=== PATIENT | female | born 1930 | race Caucasian/White ===

== ENCOUNTER 2016-02-26 07:55 | Emergency (ER) | payer OTHER ==
--- NOTE | 2016-02-26 10:42 | DIAGNOSTIC IMAGING REPORT ---
PROCEDURE: XR CHEST 2 VIEW INDICATION: COUGH TECHNIQUE: PA and lateral views. COMPARISON: None. FINDINGS: Lungs are clear. Heart is normal. There is a large hiatal hernia. Thorax is normal. IMPRESSION: 1. No acute disease
--- NOTE | 2016-02-26 12:24 | ED ORDER SUMMARY ---
..... Patient: MOHAN OH OrderSheet [facility] VisitID: [id number] [place] [address] 85y, F Registration Date/Time: 02/26/2016 ORDER SHEET Weight: 53.5 kg Allergies: Ibuprofen, Codeine, Sulfa Antibiotics, Doxycycline, Cefuroxime, Clavulanic Acid, Pravastatin GENERAL ORDERS: CBC w Diff Urgent (08:02/26/2016 EBonjosh per protocol) (Ack 8:21 LNations ER Tech1) (11:46 NHouse ER Tech1) CMP Urgent (08:02/26/2016 EBonjosh per protocol) (Ack 8:21 LNations ER Tech1) (11:46 NHouse ER Tech1) UA-Culture if indicated Urgent (:02/26/2016 EBsudhir per protocol) (Ack 8:21 LNations ER Tech1) (11:46 NHouse ER Tech1) EKG - ER Stat (09:02/26/2016 Roberto Salinas) (Ack 9:22 LNations ER Tech1) (9:37 Adi) TSH Urgent (09:02/26/2016 Roberto Salinas) (Ack 9:22 LNations ER Tech1) (11:46 NHouse ER Tech1) Troponin-I Urgent (09:02/26/2016 Roberto Salinas) (Ack 9:22 LNations ER Tech1) (11:46 NHouse ER Tech1) Chest 2V Urgent (09:02/26/2016 Roberto Salinas) (Ack 9:22 LNations ER Tech1) (9:52 LNations ER Tech1) Magnesium Urgent (09:02/26/2016 Roberto Salinas) (Ack 9:22 LNations ER Tech1) (11:46 NHouse ER Tech1) MEDICATION ORDERS: Aspirin PO 325 mg (Do not crush or chew, NOW) (09:02/26/2016 Roberto Salinas) (9:23 Josh) DuoNeb Neb Tx 1 unit dose (NOW) (09:16 02/26/2016 Roberto Salinas) (9:37 Adi) Azithromycin PO 500 mg (NOW) (12:21 02/26/2016 Roberto Salinas) (12:39 [facility]) IV FLUIDS: IV NS : initial bolus 500 mL (1000 mL/hr), then none - for X1 (NOW) (09:09 02/26/2016 Roberto Salinas) (9:24 [facility]) Metoprolol IV 5 mg (hold for BP < 90 systolic or 40 diastolic) (09:12 02/26/2016 Roberto Salinas) (9:24 [facility]) Metoprolol IV 5 mg (HIGH ALERT MEDICATION, NOW) (11:36 02/26/2016 Roberto Salinas) (12:02 [facility]) IV NS : initial bolus 500 mL (1000 mL/hr), then none - for X1 (NOW) (11:55 02/26/2016 Roberto Salinas) (12:03 [facility]) ORDER SHEET NOTES: [Electronically signed by Lynda Scott (13:11 02/26/2016)] [Electronically signed by Geovany Gracia Dr. (01:18 02/28/2016)] [Electronically locked/signed by Lynda Scott (13:11 02/26/2016)]
--- NOTE | 2016-02-26 12:24 | ED NURSING NOTES ---
Clinical Report - Nurses [facility] [address] [place] [address] 02/26/2016 8:01 Patient: MOHAN OH TRIAGE Triage time 0805. Chief Complaint: ALTERED MENTAL STATUS and (falls no injury). Alert. No acute distress. --08:14 Lynda Scott 08:12 02/26/16. BP: 109/75. HR: 150. RR: 16. O2 saturation: 95%. Temp: 97.8 F. Pain level now 0/10. --08:14 Lynda Scott. Weight: 53.5 kg. Height/Length: 61 inches. BMI: 22.3. --08:12 Lynda Scott. Medications Serevent Diskus Inhalation. --08:28 Lynda Scott PredniSONE Oral. --08:28 Lynda Scott Metoprolol Succinate ER Oral. --08:28 Lynda Scott Lasix Oral. --08:28 Lynda Scott Tessalon Perles Oral. --08:28 Lynda Scott Potassimin Oral. --08:29 Lynda Scott Ventolin HFA Inhalation. --08:29 Lynda Scott Qvar Inhalation. --08:29 Lynda Scott Simvastatin Oral. --08:29 Lynda Scott. Allergies Ibuprofen. --08:29 Lynda Scott Codeine. --08:29 Lynda Scott Sulfa Antibiotics. --08:29 Lynda Scott Doxycycline. --08:30 Lynda Scott Cefuroxime. --08:30 Lynda Scott Clavulanic Acid. --08:30 Lynda Scott Pravastatin. --08:30 Lynda Scott. History Arrived by EMS. Historian: EMS. This started 1 months ago. PAST MEDICAL HX: Stroke. --08:14 Lynda Scott. PROBLEMS: Atrial Fibrillation. --08:13 Lynda Scott. ADDITIONAL SURGERIES: Mastectomy. --08:30 Lynda Scott. PHYSICAL ASSESSMENT To room via stretcher. Patient gowned. GENERAL / NEURO / PSYCH: Alert. Appears in no acute distress. The patient is disoriented to time and situation. Speech within normal limits. Patient appears well-nourished and neat and clean. RESPIRATORY: Respirations not labored. Breath sounds within normal limits. CVS: Cardiac rhythm: atrial fibrillation. GI / : Abdomen soft and nontender. Bowel sounds within normal limits. SKIN: Skin is warm and dry. Normal skin turgor. --08:15 Lynda Scott. NURSING PROGRESS NOTES 08:31 02/26/2016 Site #1 started via IV in the right forearm with an 22g angiocath, with aseptic technique and good blood return; one attempt. Blood drawn: rainbow set. Labeled in the presence of the patient and sent to the lab. Saline lock flushed with 10 mL saline. --08:31 Lynda Scott 09:23 02/26/2016 Aspirin PO 325 mg given. Allergies verified and confirmed 5 rights. --09:23 Lynda Scott 09:23 02/26/2016 Metoprolol (Metoprolol Tartrate) IVP 5 mg given. via site #1. Allergies verified and confirmed 5 rights. IV patency established. IV site checked: no pain, redness, or swelling. IV flushed thoroughly pre- and post-medication administration. IVP given by RN. --09:24 Lynda Scott 09:24 02/26/2016 Started bag #1 500 mL IV Fluids IV NS (Saline); bolus of 500 mL wide open via site #1 --09:24 Lynda Scott EKG time: (936). EKG was ordered, performed and shown to the ED physician. --09:37 Soila Reagan ER TechNey 09:37 02/26/2016 Duoneb (Ipratropium-Albuterol) Neb TX Nebulizer 1 unit dose given. Given by the respiratory therapist. Allergies verified and confirmed 5 rights. --09:37 Sarah Sweeney 09:38 02/26/16. BP: 109/81. HR: 109. RR: 16. O2 saturation: 98%. Pain level now 0/10. --09:39 Lynda Scott Cardiac rhythm: atrial fibrillation; (ventricular rate). Reassessment after medication administered. She has had no adverse reaction. Overall patient status is improved- she states feels better. --09:39 Lynda Scott 12:02 02/26/2016 Metoprolol (Metoprolol Tartrate) IVP 5 mg given. via site #1. Allergies verified and confirmed 5 rights. IV patency established. IV site checked: no pain, redness, or swelling. IV flushed thoroughly pre- and post-medication administration. IVP given by RN. --12:02 Lynda Scott 12:03 02/26/2016 Started bag #1 500 mL IV Fluids IV NS (Saline); bolus of 500 mL wide open via site #1. Confirmed 5 rights. IV patency established. IV site checked: no pain, redness, or swelling. IV flushed thoroughly pre- and post-medication administration. --12:03 Lynda Scott 12:03 02/26/16. BP: 101/64. HR: 128. RR: 18. O2 saturation: 96%. Pain level now 0/10. --12:05 Lynda Scott ( Pt has completely changed affect, pt now anxious, tearful, wants to leave, family at bedside attempting to calm pt down). Family informed about reason for wait and about plan of care. Patient waiting for disposition. --12:05 Lynda Scott 12:39 02/26/2016 Azithromycin PO 500 mg given. Allergies verified and confirmed 5 rights. --12:39 Lynda Scott. DISPOSITION / DISCHARGE Departure time: 1310. Condition at departure: improved and stable. Discharge instructions provided and reviewed with the family. Reviewed medication(s). Family verbalized understanding. Written instructions provided in [place]. The patient was discharged by the physician. She was discharged home and accompanied by family. She left the Emergency Department in a wheelchair and via private vehicle. Family member driving. --13:11 Lynda Scott 13:10 02/26/16. BP: 108/69. HR: 90. RR: 18. O2 saturation: 96%. Pain level now 0/10. --13:11 Lynda Scott. Locked/Released at 02/26/2016 13:11 by Lynda Scott,
--- NOTE | 2016-02-26 12:24 | ED CLINICAL REPORT ---
Clinical Report - Physicians/Mid Levels [facility] [address] [place] [address] 02/26/2016 8:01 Patient: MOHAN OH Time Seen: 0903. Arrived- By private vehicle. Historian- patient and family. HISTORY OF PRESENT ILLNESS Chief Complaint: DECREASED MENTAL STATUS. This started past several weeks and is still present and worsening. It has been waxing/waning but is not gone now. Patient was last known well (several weeks ago). The patient has been confused. (no pain anywhere. not eating/drinking well. strong smelling urine with bubbles.). No alcohol recently. The patient has had weakness. She has had a recent fall. Usually is alert and oriented X3 and usually has normal mobility. Similar symptoms previously: None. Recent medical care: Not recently seen/assessed. REVIEW OF SYSTEMS No fever or chest pain. She has had a cough (resolving). runny nose resolving. All systems otherwise negative, except as recorded above. SOCIAL HISTORY Former smoker. No alcohol use or drug use. No recent travel. Is a local resident. FAMILY HISTORY Negative. ADDITIONAL NOTES The nursing notes have been reviewed. PHYSICAL EXAM Vital Signs: 02/26/2016 08:12 BP: 109/75. HR: 150. RR: 16. O2 saturation: 95%. Temp: 97.8 F. Blood pressure normal. Oxygen saturation normal. Appearance: Alert. No acute distress. Head: Head atraumatic. Eyes: Pupils equal, round and reactive to light. ENT: Normal ENT inspection. Airway intact. Moist mucous membranes. Pharynx normal. Neck: Normal inspection. Neck supple. No meningeal signs. CVS: Tachycardia. Heart sounds normal. Pulses normal. Rhythm normal. Respiratory: No respiratory distress. Mild bilateral rhonchi present in the bases. No rales or wheezes. Abdomen: Soft and nontender. No organomegaly. Back: Normal inspection. Skin: Skin warm and dry. Normal skin color. No rash. Normal skin turgor. Extremities: Extremities exhibit normal ROM. No lower extremity edema. Neuro: Alert. Oriented X 3. No alteration in mental status. No aphasia. Mood/affect normal. Speech normal. No dysphasia or dysarthria. Cranial nerves normal (as tested). No cerebellar findings. No motor deficit. No sensory deficit. LABS, X-RAYS, AND EKG Chest X-ray: (PROCEDURE: XR CHEST 2 VIEW INDICATION: COUGH TECHNIQUE: PA and lateral views. COMPARISON: None. FINDINGS: Lungs are clear. Heart is normal. There is a large hiatal hernia. Thorax is normal. IMPRESSION: 1. No acute disease). The X-rays were independently viewed by me, interpreted by the radiologist and discussed with the radiologist. Laboratory Tests: UA-Culture if indicated: (GILDA: 02/26/2016 08:45) ( MsgRcvd 02/26/2016 09:19) Final results Test Result Flag Units (Reference) URINE COLOR YELLOW URINE APPEARANCE CLEAR URINE GLUCOSE NEGATIVE (NEGATIVE) URINE BILIRUBIN NEGATIVE (NEGATIVE) URINE KETONE TRACE (NEGATIVE) URINE SPECIFIC GRAVITY 1.015 (1.010-1.030) URINE PH 6.0 (5.0-8.0) URINE PROTEIN TRACE (NEGATIVE) URINE UROBILINOGEN 1.0 EU/dL (0.2-1.0) URINE NITRITE NEGATIVE (NEGATIVE) URINE BLOOD TRACE-LYSED (NEGATIVE) URINE LEUK ESTERASE NEGATIVE (NEGATIVE) URINE RBC RARE rbc/hpf (0-1) URINE WBC 0-1 wbc/hpf (0-1) URINE EPITHELIAL CELLS 0-1 EPI/hpf (0-5) URINE BACTERIA NONE SEEN (NONE SEEN) URINE COMMENT CULT NOT INDICATED URINE CULTURES ARE SET-UP BASED ON THE FOLLOWING CRITERIA:POSITIVE NITRITEPOSITIVE LEUKOCYTE ESTERASEGREATER THAN 10 WHITE BLOOD CELLSMODERATE (2+) OR GREATER BACTERIA CBC w Diff: (GILDA: 02/26/2016 08:20) ( MsgRcvd 02/26/2016 08:56) Final results Test Result Flag Units (Reference) WHITE BLOOD COUNT 9.6 K/uL (4.5-11.5) RED BLOOD COUNT 4.30 M/uL (4.00-5.20) HEMOGLOBIN 12.3 gm/dL (12.0-16.0) HEMATOCRIT 37.6 % (36.0-46.0) MEAN CELL VOLUME 87 fL (80-100) MEAN CORPUSCULAR HGB 29 pg (26-34) MEAN CORPUSCULAR HGB CONC 33 g/dL (31-37) RED CELL DISTRIBUTION WIDTH 16.4 H % (11.6-14.8) PLATELET COUNT 259 K/uL (150-400) NEUTROPHIL % 72.4 % (50-75) LYMPH % 19.4 L % (25-40) MONO % 7.9 % (3-14) EOSINOPHIL % 0.1 % (0-4) BASOPHIL % 0.2 % (0-2) Magnesium: (GILDA: 02/26/2016 08:20) ( MsgRcvd 02/26/2016 10:41) Final results Test Result Flag Units (Reference) MAGNESIUM 2.1 mg/dL (1.8-2.4) TROPONIN I <0.05 ng/mL (0.00-1.5) TROPONIN REFERENCE RANGE:<0.1 NEGATIVE0.1-1.5 INDETERMINANT>1.5 POSITIVE THYROID STIMULATING HORMONE 2.123 uIU/mL (0.30-3.74) CMP: (GILDA: 02/26/2016 08:20) ( MsgRcvd 02/26/2016 09:03) Final results Test Result Flag Units (Reference) GLUCOSE 118 H mg/dL (70-110) BUN 23 H mg/dL (7-18) CREATININE 1.1 mg/dL (0.6-1.3) Estimated GFR 50.05 mL/min Estimated GFR- >60 mL/min Note: Persistent reduction over 3 months in eGFR<60 mL/min/1.73 m2 defines CKD. Patients with eGFR values>=60 mL/min/1.73 m2 may also have CKD if evidence ofpersistent proteinuria. Additional information may be foundat www.kidney.org. SODIUM 136 mmol/L (136-145) POTASSIUM 3.5 mmol/L (3.5-5.1) CHLORIDE 102 mmol/L (98-107) CARBON DIOXIDE 26 mmol/L (21-32) CALCIUM 8.6 mg/dL (8.5-10.1) TOTAL PROTEIN 6.4 g/dL (6.4-8.2) ALBUMIN 3.0 L g/dL (3.3-5.0) BILIRUBIN, TOTAL 0.6 mg/dL (0.0-1.0) ALKALINE PHOSPHATASE 74 U/L (46-116) AST (SGOT) 16 U/L (15-37) ALT (SGPT) 25 U/L (12-78) . PROGRESS AND PROCEDURES Course of Care: the patient is a pleasant 85-year-old female with coccyx past medical history presented for evaluation of altered mental status 1 month. The patient is resting in bed in no acute distress however patient does have tachycardia and examination. No focal neurological deficits noted on examination. The patient does stroke at this time or need evaluation for this entity. At this time will be evaluating for any systemic causes for the global typeof altered mental status the family has been describing. Patient is otherwise afebrile here in the emergency department. Family and patient are agreeable to the workup. At this time differential diagnosis includes sepsis,pneumonia, urinary tract infection,electrolyte abnormalities. Patient's workup was remarkable for possible right lower lobe consolidation on my preliminary read of the chest x-ray. We are currently awaiting final read from radiology. Findings on chest x-ray are consistent with exam findings. Laboratory studies did not show any acute abnormalities. No urinary tract infection. Electrolyte otherwise unremarkable. Lactic acid and troponin are also normal. The patient continues to be resting in bed in no acute distress. Tachycardia improved with treatment here in the emergency department. I discussion with family and patient in regards to workup diagnosis, home care, follow-up, and return precautions. The patient and family expressed understanding of these instructions and was agreeable to them. Of note, final read on chest x-ray by radiology is noted to have no acute findings. I disagree with this reading based on my evaluation of the patient and note right lower lobe consolidation. Patient a good outpatient candidate. Patient has good family support. Family and patient are agreeable to follow up with their primary care doctor. Disposition: Discharged. Condition: good. CLINICAL IMPRESSION 02/26/2016 12:03 BP: 101/64. HR: 128. RR: 18. O2 saturation: 96%. Hypertensive. Tachycardic. Oxygen saturation normal. Chronic, paroxysmal atrial fibrillation with uncontrolled rate. The patient is prescribed warfarin or another FDA approved anticoagulant. (acute exacerbation). Bacterial pneumonia. (acute right lower lobe). INSTRUCTIONS Warnings: GENERAL WARNINGS: Return or contact your physician immediately if your condition worsens or changes unexpectedly, if not improving as expected, or if other problems arise. Specifically return if pain, vomiting, bleeding, breathing difficulty or fever. Your Current Medications: CONTINUE TAKING THE FOLLOWING MEDICATIONS: Lasix Oral. Metoprolol Succinate ER Oral. Potassimin Oral. PredniSONE Oral. Qvar Inhalation. Serevent Diskus Inhalation. Simvastatin Oral. Tessalon Perles Oral. Ventolin HFA Inhalation. Prescription Medications: Zithromax Z-Jhoan: Take according to package instructions. No refills. Substitution is permissible. Follow-up: Return to the emergency department as needed. Follow up with your doctor in three days. Reason for referral: recheck today's concerns. Summary of care provided to patient via paper. Screening today revealed the patient's blood pressure to be in the normal range. The patient should follow up with a primary care provider for blood pressure management. Understanding of the discharge instructions verbalized by patient. (Electronically signed by Geovany Gracia Dr. 02/28/2016 1:18)
--- NOTE | 2016-02-26 12:24 | ED ORDER SUMMARY ---
..... Patient: MOHAN OH OrderSheet [facility] VisitID: [id number] [place] [address] 85y, F Registration Date/Time: 02/26/2016 ORDER SHEET Weight: 53.5 kg Allergies: Ibuprofen, Codeine, Sulfa Antibiotics, Doxycycline, Cefuroxime, Clavulanic Acid, Pravastatin GENERAL ORDERS: CBC w Diff Urgent (08:02/26/2016 EBonjosh per protocol) (Ack 8:21 LNations ER Tech1) (11:46 NHouse ER Tech1) CMP Urgent (08:02/26/2016 EBonjosh per protocol) (Ack 8:21 LNations ER Tech1) (11:46 NHouse ER Tech1) UA-Culture if indicated Urgent (:02/26/2016 EBsudhir per protocol) (Ack 8:21 LNations ER Tech1) (11:46 NHouse ER Tech1) EKG - ER Stat (09:02/26/2016 Roberto Salinas) (Ack 9:22 LNations ER Tech1) (9:37 Adi) TSH Urgent (09:02/26/2016 Roberto Salinas) (Ack 9:22 LNations ER Tech1) (11:46 NHouse ER Tech1) Troponin-I Urgent (09:02/26/2016 Roberto Salinas) (Ack 9:22 LNations ER Tech1) (11:46 NHouse ER Tech1) Chest 2V Urgent (09:02/26/2016 Roberto Salinas) (Ack 9:22 LNations ER Tech1) (9:52 LNations ER Tech1) Magnesium Urgent (09:02/26/2016 Roberto Salinas) (Ack 9:22 LNations ER Tech1) (11:46 NHouse ER Tech1) MEDICATION ORDERS: Aspirin PO 325 mg (Do not crush or chew, NOW) (09:02/26/2016 Roberto Salinas) (9:23 Josh) DuoNeb Neb Tx 1 unit dose (NOW) (09:16 02/26/2016 Roberto Salinas) (9:37 Adi) Azithromycin PO 500 mg (NOW) (12:21 02/26/2016 Roberto Salinas) (12:39 [facility]) IV FLUIDS: IV NS : initial bolus 500 mL (1000 mL/hr), then none - for X1 (NOW) (09:09 02/26/2016 Roberto Salinas) (9:24 [facility]) Metoprolol IV 5 mg (hold for BP < 90 systolic or 40 diastolic) (09:12 02/26/2016 Roberto Salinas) (9:24 [facility]) Metoprolol IV 5 mg (HIGH ALERT MEDICATION, NOW) (11:36 02/26/2016 Roberto Salinas) (12:02 [facility]) IV NS : initial bolus 500 mL (1000 mL/hr), then none - for X1 (NOW) (11:55 02/26/2016 Roberto Salinas) (12:03 [facility]) ORDER SHEET NOTES: [Electronically signed by Lynda Scott (13:11 02/26/2016)] [Electronically signed by Geovany Gracia Dr. (01:18 02/28/2016)] [Electronically locked/signed by Lynda Scott (13:11 02/26/2016)]
--- NOTE | 2016-02-28 01:18 | ED DISCHARGE INSTRUCTIONS ---
Patient: MOHAN OH General Instructions [facility] VisitID: [id number] [place] [address] 85y, F Registration Date/Time: 02/26/2016 02/26/2016 12:03 BP: 101/64. HR: 128. RR: 18. O2 saturation: 96%. Hypertensive. Tachycardic. Oxygen saturation normal. Chronic, paroxysmal atrial fibrillation with uncontrolled rate. The patient is prescribed warfarin or another FDA approved anticoagulant. (acute exacerbation). Bacterial pneumonia. (acute right lower lobe). INSTRUCTIONS Warnings: GENERAL WARNINGS: Return or contact your physician immediately if your condition worsens or changes unexpectedly, if not improving as expected, or if other problems arise. Specifically return if pain, vomiting, bleeding, breathing difficulty or fever. Your Current Medications: CONTINUE TAKING THE FOLLOWING MEDICATIONS: Lasix Oral. Metoprolol Succinate ER Oral. Potassimin Oral. PredniSONE Oral. Qvar Inhalation. Serevent Diskus Inhalation. Simvastatin Oral. Tessalon Perles Oral. Ventolin HFA Inhalation. Prescription Medications: Zithromax Z-Jhoan: Take according to package instructions. No refills. Substitution is permissible. Follow-up: Return to the emergency department as needed. Follow up with your doctor in three days. Reason for referral: recheck today's concerns. Summary of care provided to patient via paper. Screening today revealed the patient's blood pressure to be in the normal range. The patient should follow up with a primary care provider for blood pressure management. Understanding of the discharge instructions verbalized by patient. ADDITIONAL INFORMATION Pneumonia (Adult) Pneumonia is an infection deep within the lung, in the small air sacs (alveoli). It may be due to a virus or bacteria and is usually treated with an antibiotic. Severe cases require treatment in the hospital. Milder cases can be treated at home. Symptoms usually start to improve during the first2 days of treatment. Home Care: Rest at home for the first 23 days or until you feel stronger. When resuming activity, dont let yourself become overly tired. Avoid exposure to cigarette smoke (yours or others). You may use acetaminophen (Tylenol) or ibuprofen (Motrin, Advil) to control fever or pain, unless another medicine was prescribed. [NOTE: If you have chronic liver or kidney disease or ever had a stomach ulcer or GI bleeding, talk with your doctor before using these medicines.] (Aspirin should never be used in anyone under 18 years of age who is ill with a fever. It may cause severe liver damage.) Your appetite may be poor so a light diet is fine. Keep well hydrated by drinking 68 glasses of fluids per day (water, sport drinks such as Gatorade, sodas without caffeine, juices, tea, soup, etc.). This will help loosen secretions in the lung, making it easier for you to cough up the phlegm (sputum). If you also have heart or kidney disease, check with your doctor before you drink extra amounts of fluids. Finish all antibiotic medicine prescribed, even if you are feeling better after a few days. Follow Up with your doctor in the next 23 days (or as advised) to be sure you are responding properly to the medicine. [NOTE: If you are age 65 or older, or if you have chronic lung disease (asthma, emphysema or COPD), we recommendthe pneumococcal vaccination and a yearlyinfluenzavaccination(flu-shot) every . Ask your doctor about this.] Get Prompt Medical Attention if any of the following occur: Not getting better within the first 48 hours of treatment Increasing shortness of breath or rapid breathing (over 25 breaths/minute) Coughing up blood or increasing chest pain with breathing Fever of 100.4F (38C) oral or higher, not better with fever medication Increasing weakness, dizziness or fainting Increasing thirst or dry mouth Sinus pain, headache or a stiff neck Chest pain not caused by coughing Arrhythmia Electrical impulses cause the normal heart to beat 60 to 100 times a minute. These impulses come from a natural pacemaker deep inside the heart muscle. Each impulse causes the heart muscle to contract. This causes the blood to flow through the heart and out to the tissues and organs of your body. An arrhythmia is a change from the normal speed or pattern of these electrical impulses. This can cause the heart to beat too fast (tachycardia); or too slow (bradycardia); or in an unsteady pattern (irregular rhythm). Symptoms of arrhythmias Different people experience arrhythmias differently. Sometimes they may not have symptoms, but just notice a change in their pulse. Symptoms can include: Fluttering feeling in the chest Shortness of breath Chest pain or pressure Lightheadedness or dizziness Fainting or nearly fainting Palpitations Tiredness, fatigue, or weakness Causes of arrhythmias Arrhythmias are most often due to heart disease such as: Coronary artery disease (arteriosclerosis) Disease of the heart valves Enlarged heart High blood pressure Heart failure Other causes ofarrhythmia include: Certain medicines (such as asthma inhalers and decongestants) Some herbal supplements Cardiac stimulant drugs (such as cocaine, amphetamine, diet pills, certain decongestant cold medicines, caffeine, and nicotine) Excessive alcohol use Medical conditions such as thyroid disease, anemia, anxiety, and panic disorder Arrythmias can often be prevented. The cause and type of arrhythmia determines the best treatment. Sometimes your doctor may want to monitor your heart rate over a 24-hour period or longer. This can help identify the cause of your arrhythmia and find the best treatment. This can be done with a Holter monitor,a portable EKG recording device attached by wires to your chest. You can carry this with you as you perform your routine activities during the monitoring period. Home care Avoid cardiac stimulants (such as cocaine, amphetamine, diet pills, certain decongestant cold medicines, caffeine, and nicotine). If you smoke, stop smoking. Contact your doctor or a local stop-smoking program for help. Tell your doctor about any prescription, [id number] or herbal medicines you take. These may be affecting your heart rhythm. Follow-up care Follow up with your health care provider or as advised by our staff. If a Holter monitor has been recommended, contact the cardiologistyou have been referred toas soon as you canpick up the device. Other outpatient tests may also be arranged for you at that time. Call 911 This is the fastest and safest way to get to the emergency department. The paramedics can also start treatment on the way to the hospital, if needed. Don'twait until your symptoms are severe to call 911. Other reasons to call 911 besides chest pain include: Chest, shoulder, arm, neck, or back pain Shortness of breath Feeling lightheaded, faint, or dizzy Rapid heart beat Slower than usual heart rate compared to your normal Angina withweakness, dizziness, fainting, heavy sweating, nausea, or vomiting Extreme drowsiness, or confusion Weakness of an arm or leg or one side of the face Difficulty with speech or vision When to seek medical care Remember, things are not always like they are on TV. Sometimes it is not so obvious. You may only feel weak or just "not right." If it is not clear or if you have any doubt, call for advice. Seek help for chest pain, or it feels different from usual, even if your symptoms are mild. Do not drive yourself. Have someone else drive. If no one can drive you, call 911. If your doctor has given you medicines to take when you have symptoms, take them, but do not delay getting help while trying to find them. Do not delay. Fast diagnosis and treatment can prevent or limit the amount of heart damage during a heart attack or stroke. Do not go to your doctor's ofice or a clinic because they will not be able to provide all of the testing or treatment required for this condition. Azithromycin Oral tablet What is this medicine? AZITHROMYCIN (az ith ronrohit LYE sin) is a macrolide antibiotic. It is used to treat or prevent certain kinds of bacterial infections. It will not work for colds, flu, or other viral infections. How should I use this medicine? Take this medicine by mouth with a full glass of water. Follow the directions on the prescription label. The tablets can be taken with food or on an empty stomach. If the medicine upsets your stomach, take it with food. Take your medicine at regular intervals. Do not take your medicine more often than directed. Take all of your medicine as directed even if you think your are better. Do not skip doses or stop your medicine early. Talk to your electric serviceman regarding the use of this medicine in children. Special care may be needed. What side effects may I notice from receiving this medicine? Side effects that you should report to your doctor or health insurance healthcare representative as soon as possible: allergic reactions like skin rash, itching or hives, swelling of the face, lips, or tongue confusion, nightmares or hallucinations dark urine difficulty breathing hearing loss irregular heartbeat or chest pain pain or difficulty passing urine redness, blistering, peeling or loosening of the skin, including inside the mouth white patches or sores in the mouth yellowing of the eyes or skin Side effects that usually do not require medical attention (report to your doctor or health insurance healthcare representative if they continue or are bothersome): diarrhea dizziness, drowsiness headache stomach upset or vomiting tooth discoloration vaginal irritation What may interact with this medicine? Do not take this medicine with any of the following medications: lincomycin This medicine may also interact with the following medications: amiodarone antacids cyclosporine digoxin magnesium nelfinavir phenytoin warfarin What if I miss a dose? If you miss a dose, take it as soon as you can. If it is almost time for your next dose, take only that dose. Do not take double or extra doses. Where should I keep my medicine? Keep out of the reach of children. Store at room temperature between 15 and 30 degrees C (59 and 86 degrees F). Throw away any unused medicine after the expiration date. What should I tell my health care provider before I take this medicine? They need to know if you have any of these conditions: kidney disease liver disease irregular heartbeat or heart disease an unusual or allergic reaction to azithromycin, erythromycin, other macrolide antibiotics, foods, dyes, or preservatives or trying to get breast-feeding What should I watch for while using this medicine? Tell your doctor or health insurance healthcare representative if your symptoms do not improve. Do not treat diarrhea with over the counter products. Contact your doctor if you have diarrhea that lasts more than 2 days or if it is severe and watery. This medicine can make you more sensitive to the sun. Keep out of the sun. If you cannot avoid being in the sun, wear protective clothing and use sunscreen. Do not use sun lamps or tanning beds/booths. You have been given the following additional information: Pneumonia (Adult) Arrhythmia, Unspecified Azithromycin Oral tablet (Electronically signed by Geovany Gracia Dr. 02/28/2016 1:18)
--- NOTE | 2016-02-28 01:19 | ED MAR SUMMARY ---
..... Medication Administration Record [facility] [address] [place] [address] Patient: MOHAN OH Visit ID: [id number] 85y, F Weight: 53.5 kg Height/Length: 61 in BMI: 22.3 ALLERGIES: Pravastatin, Clavulanic Acid, Cefuroxime, Doxycycline, Sulfa Antibiotics, Codeine, Ibuprofen Given :02/26/2016 Lynda Scott, Medication Administered: METOPROLOL [IVP] (METOPROLOL TARTRATE), Dose: 5 mg IVP, Site: #1 right forearm. Medication Ordered: Metoprolol IV 5 mg (hold for BP < 90 systolic or 40 diastolic). Given :02/26/2016 Lynda Scott, Medication Administered: ASPIRIN [PO], Dose: 325 mg PO. Medication Ordered: Aspirin PO 325 mg (Do not crush or chew, NOW). Start 09:02/26/2016 Lynda Scott, Medication Administered: IV NS (SALINE), Dose: IV Fluids, Bolus: 500 mL wide open, Dispensed: 500 mL bag, Site: #1 right forearm. Medication Ordered: IV NS : initial bolus 500 mL (1000 mL/hr), then none - for X1 (NOW). Given 09:37 02/26/2016 Sarah Sweeney, Medication Administered: DUONEB [NEB TX] (IPRATROPIUM-ALBUTEROL), Dose: 1 unit dose Nebulizer Neb TX. Medication Ordered: DuoNeb Neb Tx 1 unit dose (NOW). Given 12:02/26/2016 Lynda Scott, Medication Administered: METOPROLOL [IVP] (METOPROLOL TARTRATE), Dose: 5 mg IVP, Site: #1 right forearm. Medication Ordered: Metoprolol IV 5 mg (HIGH ALERT MEDICATION, NOW). Start 12:02/26/2016 Lynda Scott, Medication Administered: IV NS (SALINE), Dose: IV Fluids, Bolus: 500 mL wide open, Dispensed: 500 mL bag, Site: #1 right forearm. Medication Ordered: IV NS : initial bolus 500 mL (1000 mL/hr), then none - for X1 (NOW). Given 12:39 02/26/2016 Lynda Scott, Medication Administered: AZITHROMYCIN [PO], Dose: 500 mg PO. Medication Ordered: Azithromycin PO 500 mg (NOW).
--- NOTE | 2016-02-28 01:19 | ED MAR SUMMARY ---
..... Medication Administration Record [facility] [address] [place] [address] Patient: MOHAN OH Visit ID: [id number] 85y, F Weight: 53.5 kg Height/Length: 61 in BMI: 22.3 ALLERGIES: Pravastatin, Clavulanic Acid, Cefuroxime, Doxycycline, Sulfa Antibiotics, Codeine, Ibuprofen Given :02/26/2016 Lynda Scott, Medication Administered: METOPROLOL [IVP] (METOPROLOL TARTRATE), Dose: 5 mg IVP, Site: #1 right forearm. Medication Ordered: Metoprolol IV 5 mg (hold for BP < 90 systolic or 40 diastolic). Given :02/26/2016 Lynda Scott, Medication Administered: ASPIRIN [PO], Dose: 325 mg PO. Medication Ordered: Aspirin PO 325 mg (Do not crush or chew, NOW). Start 09:02/26/2016 Lynda Scott, Medication Administered: IV NS (SALINE), Dose: IV Fluids, Bolus: 500 mL wide open, Dispensed: 500 mL bag, Site: #1 right forearm. Medication Ordered: IV NS : initial bolus 500 mL (1000 mL/hr), then none - for X1 (NOW). Given 09:37 02/26/2016 Sarah Sweeney, Medication Administered: DUONEB [NEB TX] (IPRATROPIUM-ALBUTEROL), Dose: 1 unit dose Nebulizer Neb TX. Medication Ordered: DuoNeb Neb Tx 1 unit dose (NOW). Given 12:02/26/2016 Lynda Scott, Medication Administered: METOPROLOL [IVP] (METOPROLOL TARTRATE), Dose: 5 mg IVP, Site: #1 right forearm. Medication Ordered: Metoprolol IV 5 mg (HIGH ALERT MEDICATION, NOW). Start 12:02/26/2016 Lynda Scott, Medication Administered: IV NS (SALINE), Dose: IV Fluids, Bolus: 500 mL wide open, Dispensed: 500 mL bag, Site: #1 right forearm. Medication Ordered: IV NS : initial bolus 500 mL (1000 mL/hr), then none - for X1 (NOW). Given 12:39 02/26/2016 Lynda Scott, Medication Administered: AZITHROMYCIN [PO], Dose: 500 mg PO. Medication Ordered: Azithromycin PO 500 mg (NOW).
--- NOTE | 2016-02-28 01:19 | ED MED RECONCILIATION SUMMARY ---
Patient: MOHAN OH Medication Reconciliation Report [facility] VisitID: [id number] [place] [address] 85y, F Registration Date/Time: 02/26/2016 Weight: 53.5 kg Height/Length: 61 in. BMI: 22.3 ALLERGIES: Cefuroxime, Clavulanic Acid, Codeine, Doxycycline, Ibuprofen, Pravastatin, Sulfa Antibiotics The patient's Home Medications are listed below: CONTINUE TAKING THE FOLLOWING MEDICATIONS: Lasix Oral Metoprolol Succinate ER Oral Potassimin Oral PredniSONE Oral Qvar Inhalation Serevent Diskus Inhalation Simvastatin Oral Tessalon Perles Oral Ventolin HFA Inhalation The source(s) of the original Home Medication information: Not obtained. The following Medications were given to the patient in the Emergency Department: Aspirin [PO] PO 325 mg, administered: 02/26/2016 9:23:00 AM Metoprolol [IVP] IVP 5 mg, administered: 02/26/2016 9:23:00 AM IV NS IV Fluids bolus 500 mL wide open, administered: 02/26/2016 9:24:00 AM Duoneb [Neb Tx] Neb TX 1 unit dose, administered: 02/26/2016 9:37:00 AM Metoprolol [IVP] IVP 5 mg, administered: 02/26/2016 12:02:00 PM IV NS IV Fluids bolus 500 mL wide open, administered: 02/26/2016 12:03:00 PM Azithromycin [PO] PO 500 mg, administered: 02/26/2016 12:39:00 PM The following Medications were prescribed to the patient: Zithromax Z-Jhoan: Take according to package instructions. No refills. Substitution is permissible. -- Geovany Gracia Dr.
--- NOTE | 2016-02-28 01:19 | ED MED RECONCILIATION SUMMARY ---
Patient: MOHAN OH Medication Reconciliation Report [facility] VisitID: [id number] [place] [address] 85y, F Registration Date/Time: 02/26/2016 Weight: 53.5 kg Height/Length: 61 in. BMI: 22.3 ALLERGIES: Cefuroxime, Clavulanic Acid, Codeine, Doxycycline, Ibuprofen, Pravastatin, Sulfa Antibiotics The patient's Home Medications are listed below: CONTINUE TAKING THE FOLLOWING MEDICATIONS: Lasix Oral Metoprolol Succinate ER Oral Potassimin Oral PredniSONE Oral Qvar Inhalation Serevent Diskus Inhalation Simvastatin Oral Tessalon Perles Oral Ventolin HFA Inhalation The source(s) of the original Home Medication information: Not obtained. The following Medications were given to the patient in the Emergency Department: Aspirin [PO] PO 325 mg, administered: 02/26/2016 9:23:00 AM Metoprolol [IVP] IVP 5 mg, administered: 02/26/2016 9:23:00 AM IV NS IV Fluids bolus 500 mL wide open, administered: 02/26/2016 9:24:00 AM Duoneb [Neb Tx] Neb TX 1 unit dose, administered: 02/26/2016 9:37:00 AM Metoprolol [IVP] IVP 5 mg, administered: 02/26/2016 12:02:00 PM IV NS IV Fluids bolus 500 mL wide open, administered: 02/26/2016 12:03:00 PM Azithromycin [PO] PO 500 mg, administered: 02/26/2016 12:39:00 PM The following Medications were prescribed to the patient: Zithromax Z-Jhoan: Take according to package instructions. No refills. Substitution is permissible. -- Geovany Gracia Dr.
== END 2016-02-26 13:10 | disposition home or self-care (01) ==
LOC: ED SRH 07:55
DX: I48.0 Paroxysmal atrial fibrillation (principal); J15.9 Unspecified bacterial pneumonia; Z79.899 Other long term (current) drug therapy; Z87.891 Personal history of nicotine dependence; Z88.1 Allergy status to other antibiotic agents; Z88.2 Allergy status to sulfonamides; Z88.5 Allergy status to narcotic agent; Z88.6 Allergy status to analgesic agent; Z88.8 Allergy status to other drugs, medicaments and biological substances
CPT/HCPCS: 90004; 90100; 90616; 92720; 93140; 95059